=== PATIENT | male | born 1940 | race Caucasian/White ===

== ENCOUNTER → 2019-02-20 | Day surgery (SDC) | payer MEDICARE, OTHER ==
[~2019-02-20] MED LIST: DEXAMETHASONE SOD PHOS INJ 4 MG/ML VIAL ONE; FENTANYL CITRATE/PF 100MCG/2 ML INJ ONE; GLYCOPYRROLATE INJ 1MG/ 5 ML SYR ONE; HYDRALAZINE HCL 20 MG/ML VIAL ONE; LISINOPRIL10 MG PO; MIDAZOLAM HCL 2 MG/2 ML VIAL ONE; NEOSTIGMINE 5 MG/5ML SYR ONE; ONDANSETRON HCL INJ 2MG/ML 2ML 2 MG/ML VIAL ONE; OXYMETAZOLINE HCL 0.05% NAS 1 SPRAY BTL ONE; PROPOFOL IV EMULSION 10 MG/ML 20 ML VIAL ONE; ROCURONIUM BROMIDE 10 MG/ML 5ML VIAL ONE; SEVOFLURANE INHAL SOLN 250 ML PEN BTL ONE
--- OUTSIDE RECORDS SUMMARY | 2019-02-20 07:42 | XMS REPORT ---
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 Allergies, Adverse Reactions, Alerts This patient has no known allergies or adverse reactions. Medications This patient has no known medications. Results Test Description Test Time Test Comments Text Results Atomic Results Result Comments U/S, NECK 2017-05-12 17:41:00 Reason for Exam:->Edema of larynx FINAL REPORT INDICATION:76-year-old male. Request for image guided percutaneous biopsy of right paraglottic mass. COMPARISON: Outside facility neck CT April 07, 2017 TECHNIQUE: Ultrasound neck exam. FINDINGS / IMPRESSION:Ultrasound of the right neck was unremarkable. Outside facility neck CT was reviewed and showed a benign-appearing low density lesion in the right paraglottic space, too deep for percutaneous biopsy. If pharyngeal biopsy is not performed, repeat CT of the neck without and with intravenous contrast in six months to one year is recommended for further evaluation. Signed: Odin Lucio MDRort Verified Date/Time: 05/12/2017 17:41:31 Reading Location: [facility] [id number] Ultrasound Reading Room
--- NOTE | 2019-02-20 08:53 | Diagnostic Imaging Report ---
EXAM: CHEST 2 VIEWS DATE: 02/20/2019 8:03 AM INDICATION: Preoperative evaluation COMPARISON: None IMPRESSION: There is mild rightward deviation of the trachea with prominence of the left suprahilar region which may reflect ectatic/tortuous thoracic aorta. No prior examinations are available for comparison. There is a small right pleural effusion with associated compressive atelectasis. There are increased linear and interstitial opacities bilaterally which are suggestive of fibrotic changes/scarring. There is no evidence for large focal consolidation or pneumothorax. The cardiac silhouette is not enlarged. The osseous structures demonstrate degenerative changes. No acute osseous abnormalities identified. Signed by: Dr. John Rashid MD on 02/20/2019 8:50 AM
[2019-02-20 11:55] VITALS: BP 118/86
--- NOTE | 2019-02-20 17:37 | Operative Report ---
DATE OF PROCEDURE: 02/20/2019 SURGEON: Pierre Napier MD CHIEF COMPLAINT: Left carcinoma of the vocal fold, status post treatment and questionable lesion in the right vallecula, right nasopharynx, and right tonsillar area. POSTOPERATIVE DIAGNOSES: Left carcinoma of the vocal fold, status post treatment and questionable lesion in the right vallecula, right nasopharynx, and right tonsillar area. OPERATIVE PROCEDURE: Direct laryngoscopy, rigid esophagoscopy, rigid bronchoscopy, microlaryngoscopy, biopsy of the right vallecula, biopsy of the right nasopharynx, biopsy of the right tonsillar area. ANESTHESIA: Anesthesiology group. INDICATIONS: This 78-year-old male was diagnosed with carcinoma of the left vocal folds in 2010. The patient has been treated with radiation. The patient has been cancer-free. A recent PET scan for followup showed the patient has questionable lesion in the inferior lateral region of the vallecula, questionable uptake in the right nasopharynx and uptake in the right tonsil. It was decided panendoscopy, microlaryngoscopy and biopsy and other necessary procedure will be beneficial for him. DESCRIPTION OF PROCEDURE: The patient was taken to operating room, put under general anesthesia, endotracheally intubated. The patient was positioned. The rigid esophagoscopy was performed. The esophagoscope was passed through the cricopharyngeus muscle. Esophagus was examined to about 25 cm from the incisors, no abnormality was noted. The esophagoscope was retrieved. The rigid bronchoscopy was performed. A size #4 bronchoscope with Juarez wire was used. The bronchoscope was passed via the endotracheal tube. Endotracheal tube cuff was deflated. The trachea was examined down to the duran. No abnormality was noted. The bronchoscope was retrieved. Endotracheal tube cuff was reinflated. The direct laryngoscopy was performed. A Andrew laryngoscope was used. Oropharynx and oral cavity were examined. No obvious lesion was noted in the area that was suggested on the PET scan. The right tonsil area was biopsied using the cup forceps. The piriform sinus on either side was examined. No abnormality was noted. The larynx was examined. Both the true and false vocal folds were examined. The left vocal fold was noted to be paramedian, but no lesion was noted in the vocal folds on either side. Microlaryngoscopy was performed. The laryngoscope was put on suspension. The operating microscope was brought in. The larynx was again reexamined. Again, no abnormality was noted in the both the true and false vocal folds. Adjusting the laryngoscope in the right piriform area, again no obvious abnormality was noted. The inferior lateral portion of the vallecula on the right side was biopsied using the cup forceps. The nasopharynx biopsy was undertaken. Afrin nasal spray was put into the nasal cavities on either side. The right and left nasal cavities were examined. No obvious abnormality was noted. Using the 0 degree endoscope, the nasopharynx was examined. No obvious abnormality was noted. Using the cup forceps, the nasopharynx on the right side was biopsied and sent for permanent section. The patient tolerated the above procedure well with minimal blood loss. He was able to be transferred to recovery room in stable condition. MD GEORGI LoaizaH/BRIANL /[id number]
--- NOTE | 2019-02-21 04:26 | Pre Op History & Physical ---
DATE OF SURGERY: 02/19/2019. 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 The patient has been following on a regular basis with examination and PET scan. The patient on most recent PET scan that was done in December 2018 showed the patient has 2 cm soft density lesion inferior and lateral to the right vallecula with no obvious uptake and also new mild uptake in the right nasopharynx tonsil area. These are likely inflammation and scarring. The patient denies any dysphagia or odynophagia. The patient always had trouble with swallowing since his radiation treatment and has been supplementing his nutrition with a PEG tube. REVIEW OF SYSTEMS: System review showed no recent cardiovascular, respiratory, or GI problem. PAST MEDICAL HISTORY: The patient has a history of hypertension. PAST SURGICAL HISTORY: The patient has previous tonsillectomy, septoplasty, panendoscopy, and myotomy in the esophagus. The patient also has seen [facility]. Vides [facility] for his dysphagia post radiation, which has not improved. ALLERGIES: NO KNOWN ALLERGY TO MEDICATION. MEDICATIONS: He is on omeprazole and lisinopril. SOCIAL HISTORY: The patient stopped smoking about 16 years ago, was a 2-3 pack-a-day smoker, occasional drinker. FAMILY HISTORY: Noncontributory. PHYSICAL EXAMINATION: VITAL SIGNS: The patient's vital signs were within normal limits. The patient was seen with his . HEENT: Ear exam showed normal tympanic membrane bilaterally. Nasal exam showed deviated nasal septum on the left side about 70%. Oropharynx and oral cavity showed no obvious abnormality. NECK: No lymph node or thyroid palpable. CHEST: Good air entry bilaterally. CARDIOVASCULAR: S1 and S2. No murmur noted. Mr. Diop on followup PET scan showed questionable lesion in the right vallecula and also in right nasopharynx and tonsillar area. The suggested treatment is panendoscopy, microlaryngoscopy, biopsy of these area, and other necessary procedure. Complication of procedure includes, but not limited to bleeding, infection, perforation of esophagus, pneumomediastinum, mediastinitis, airway compromise, persistent recurrence of the problem. Alternatives will be continue observation. Repeat flexible laryngoscopy exam and biopsy of the lesion in the office setting. The patient and his has elected to undergo surgical procedure. MD LEXI Loaiza/EDUARD /[id number] cc: Dr. Cabezas
== END | disposition home or self-care (01) ==
LOC: OR 07:39
PROVIDERS: ATTEND Otolaryngology Otolaryngology/Facial Plastic Surgery
DX: R49.0 Dysphonia (principal); Z85.21 Personal history of malignant neoplasm of larynx; Z92.3 Personal history of irradiation; C61 Malignant neoplasm of prostate; I10 Essential (primary) hypertension; I25.10 Atherosclerotic heart disease of native coronary artery without angina pectoris; I65.29 Occlusion and stenosis of unspecified carotid artery; F17.210 Nicotine dependence, cigarettes, uncomplicated; Z93.1 Gastrostomy status
CPT/HCPCS: 31536; 31622; 43191; 71046; 88305; 88312; J0360; J1100; J2250; J2405; J2704; J3010; J3490; 88304